=== PATIENT | female | born 1945 | race Caucasian/White ===

== ENCOUNTER 2017-01-25 06:12 | Day surgery (SDC) | payer MEDICARE, OTHER ==
--- NOTE | ~2017-01-25 | OP ---
Record Of Operation [facility] [address] [place]. [address] NAME: JUS BENTLEY : 49 STATUS : REG [facility]#: [id number] AGE: 71 ADM/REG DATE : 01/25/17 MR#: [id number] REPORT SERV DATE: 01/25/17 DICTATED BY: PJ ANGELO JR. DATE: 01/25/17 REPORT STATUS : Draft TRANSCRIBED BY: JOSÉ MIGUEL DATE: 01/25/17 DATE OF PROCEDURE: 01/25/2017 PREOPERATIVE DIAGNOSES: Right upper lobe spindle cell carcinoma, mediastinal lymphadenopathy, recent hip fracture with total hip replacement, osteoarthritis, anxiety disorder, and hypertension. POSTOPERATIVE DIAGNOSIS: Right upper lobe spindle cell carcinoma, mediastinal lymphadenopathy, recent hip fracture with total hip replacement, osteoarthritis, anxiety disorder, and hypertension. NAME OF OPERATION: Diagnostic and therapeutic bronchoscopy, endobronchial ultrasound with multiple fine-needle aspirations, harrison stations 4R, 10R, and 7. RESIDENT SURGEON: Chris Jc MD ANESTHESIA: General endotracheal. FINDINGS: The patient was noted to have an enlarged right paratracheal lymph nodes, but had a benign architecture. Multiple touch preps of the right paratracheal, right mainstem bronchial, and subcarinal lymph nodes were all negative. Adequate lymphocytes were obtained. There were no endobronchial lesions. Anatomy was normal. DETAILS OF OPERATION: After adequate general anesthesia, the patient was intubated. A bronchoscopy was performed noting no endobronchial lesions. Mucous secretions were evacuated. Endobronchial ultrasound was then performed demonstrating the large lymph nodes in the right paratracheal space. Multiple fine-needle aspirations were performed in these lymph nodes, as well as the nodes in the right mainstem bronchial region, and subcarinal region. Adequate lymphocytes were obtained from all three areas. There was no evidence of malignancy. Additional material was sent for cell block. Final pathology is pending. Adequate hemostasis was then obtained. The procedure was terminated at this point. The patient tolerated the procedure well and taken back to recovery room in stable condition. DEBORA/JOSÉ MIGUEL Pj Angelo Jr., M.D. / [id number] CC: Al Valentine Jr., M.D.
[~2017-01-25 06:12] MED LIST: ACIPHEX PO; ATEN100 PO; FIORICET 50-301 EACH PO; LIPITOR10 PO; NEUR600 PO; PRIN10 PO; XANAX1 MG PO
[2017-01-25 06:37] LABS: HEMATOCRIT 40.4 % (36.0-48.0)
[2017-01-25 06:53] LABS: BUN (BLOOD UREA NITROGEN) 9 MG/DL (6-23); CALCIUM, SERUM 9.6 MG/DL (8.5-10.4); CHLORIDE, SERUM 101 MMOL/L (96-112); CO2 (CARBON DIOXIDE) 29 MMOL/L (24-34); CREATININE 0.63 MG/DL (0.55-1.02); GFR AFRICAN AMERICAN 106 ML/MIN (>=60); GFR NON AFRICAN AMERICAN 92 ML/MIN (>=60); GLUCOSE, SERUM 109 MG/DL (60-99); POTASSIUM, SERUM 4.7 MMOL/L (3.5-5.3); SODIUM, SERUM 138 MMOL/L (135-148)
== END 2017-01-25 23:59 | disposition home or self-care (01) ==
LOC: DMU 06:12
PROVIDERS: Anesthesiology; Thoracic Surgery (Cardiothoracic Vascular Surgery)
PROC: 07B74ZX Excision of Thorax Lymphatic, Percutaneous Endoscopic Approach, Diagnostic (ICD-10-PCS; principal; 2017-01-25 08:00)
DX: C34.11 Malignant neoplasm of upper lobe, right bronchus or lung (principal); M19.90 Unspecified osteoarthritis, unspecified site; F41.9 Anxiety disorder, unspecified; I10 Essential (primary) hypertension; I34.1 Nonrheumatic mitral (valve) prolapse; G47.33 Obstructive sleep apnea (adult) (pediatric); E78.00 Pure hypercholesterolemia, unspecified; K21.9 Gastro-esophageal reflux disease without esophagitis; Z88.0 Allergy status to penicillin; Z88.5 Allergy status to narcotic agent; Z91.09 Other allergy status, other than to drugs and biological substances; Z90.89 Acquired absence of other organs; Z96.641 Presence of right artificial hip joint; Z79.899 Other long term (current) drug therapy; Z98.890 Other specified postprocedural states
CPT/HCPCS: 80048; 85014; 85018; 88172; 88173; 88177; 88305; 93005; A9270-GY; C1725; J2175; J2250; J2405; J3010

== ENCOUNTER 2017-01-31 06:40 | Inpatient (IN) | payer MEDICARE, OTHER ==
--- NOTE | ~2017-01-31 | OP ---
Record Of Operation [facility] [address] [place]. [address] NAME: JUS BENTLEY : 49 STATUS : ADM IN PAT#: [id number] AGE: 71 ADM/REG DATE : 01/31/17 MR#: [id number] REPORT SERV DATE: 01/31/17 DICTATED BY: GLENN ANGELO JR. 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 Final pathology pending. NAME OF OPERATION: Bronchoscopy, right thoracoscopy with right upper lobectomy, complete mediastinal node dissection, harrison stations 4R, 7, 9, 10R, 11R, and intercostal nerve block. RESIDENT SURGEON: Chris Jc. [employer]: Charli Uriarte. ANESTHESIA: General endotracheal. FINDINGS: The patient was noted to have a large tumor arising out of the right upper lobe. Appeared to be contained within the right upper lobe. There were some adhesions extending to the chest wall but it was not invading the chest wall. Frozen section confirmed there was no chest wall or pleural involvement. It is difficult to tell on frozen section the exact etiology of this tumor or the cell type of the tumor. All margins were negative. Final pathology is pending. There were a lot of enlarged lymph nodes, particularly in the right paratracheal area but we could not see any obvious tumor involvement of these lymph nodes. DETAILS OF OPERATION: After adequate general anesthesia, the patient was intubated. Bronchoscopy was performed noting no endobronchial lesions. Mucous secretions were evacuated. A left-sided double-lumen endotracheal tube was then placed. The patient was then positioned in the left lateral decubitus position. The right chest was prepped and draped in a routine sterile fashion. A small incision was made overlying the lower intercostal space. A separate anterior trocar incision was also made. Through these two incision sites, the above findings were noted. Tumor was easily identified and it was felt not to be involving the chest wall. Some inflammatory adhesions were taken down between the tumor in the chest wall. Decision was made to go ahead with the right upper lobectomy. The inferior pulmonary ligament was then taken down. The hilar structures were dissected out. The right superior pulmonary vein was identified and transected preserving the middle lobe branch. The pulmonary arterial branch was divided with a vascular stapler. The bronchus was divided with a BINH stapler. The fissure was divided with multiple firings of BINH stapler with tissue reinforcements. The specimen was placed within the specimen bag and withdrawn through the anterior trocar site. Nodes from the right paratracheal, subcarinal, inferior pulmonary ligament, right mainstem bronchial and hilar regions were all removed. Adequate hemostasis was obtained. An intercostal nerve block was performed. The chest was thoroughly irrigated with sterile water. A 20-Bur[place] chest tube was placed. The lung was Record Of Operation [address] [address] NAME: JUS BENTLEY : 49 STATUS : ADM IN [facility]#: [id number] AGE: 71 ADM/REG DATE : 01/31/17 MR#: [id number] REPORT SERV DATE: 01/31/17 DICTATED BY: GLENN ANGELO JR. DATE: 01/31/17 REPORT STATUS : Draft TRANSCRIBED BY: JOSÉ MIGUEL DATE: 01/31/17 reinflated. Trocar site was closed with running Vicryl sutures. The skin was closed with running monofilament suture. A Dermabond dressing was applied and the procedure was terminated at this point. The patient tolerated the procedure well and taken back to the recovery room in stable condition. DEBORA/JOSÉ MIGUEL Glenn Angelo Jr., M.D. / [id number] CC: Al Valentine Jr., M.D.
[2017-01-31 07:21] LABS: ASCORBIC ACID (UR NOT ORDER) NEG (NEG); BILIRUBIN, URINE NEGATIVE (NEG); KETONE, URINE NEGATIVE (NEG); LEUKOCYTE ESTERASE(NOT OR MOD (NEG); WBC (NOT ORDERED) (RFLEX) 30 (0-5)
[2017-01-31 07:51] LABS: INTERNATIONAL NORMAL RATI 1.2 UNITS (-)
[2017-01-31 07:52] LABS: BASOPHILS 0.2 %; BASOPHILS ABSOLUTE 0.02 10/3/uL (0.0-0.16); EOSINOPHILS 1.3 %; EOSINOPHILS ABSOLUTE 0.17 10/3/uL (0.0-0.53); HEMATOCRIT 39.7 % (36.0-48.0); HEMOGLOBIN 12.7 g/dL (12.0-16.0); IMMATURE GRANULOCYTES 0.5 %; IMMATURE GRANULOCYTES ABSOLUTE 0.07 10/3/uL (0.0-0.11); LYMPHOCYTES 15.9 %; LYMPHOCYTES ABSOLUTE 2.03 10/3/uL (0.67-4.30); MEAN CORPUSCULAR HEMOGLOB 26.6 pg (26.0-34.0); MEAN CORPUSCULAR VOLUME 83.1 fL (80-100); MEAN PLATELET VOLUME 9.7 fL (9.2-13.0); MONOCYTES 6.4 %; MONOCYTES ABSOLUTE 0.82 10/3/uL (0.21-1.20); NEUTROPHILS 75.7 %; NEUTROPHILS ABSOLUTE 9.65 10/3/uL (2.02-8.40); PLATELET COUNT 331 10/3/uL (150-400); RBC DISTRIBUTION WIDTH 19.6 % (12.0-16.0); RED CELL COUNT 4.78 10/6/uL (4.0-5.6); WHITE BLOOD CELLS 12.8 10/3/uL (4.5-10.5)
[2017-01-31 07:54] LABS: MANUAL DIFF NO %
[2017-01-31 07:58] LABS: BUN (BLOOD UREA NITROGEN) 10 MG/DL (6-23); CALCIUM, SERUM 9.9 MG/DL (8.5-10.4); CHLORIDE, SERUM 104 MMOL/L (96-112); CREATININE 0.65 MG/DL (0.55-1.02); GFR AFRICAN AMERICAN 105 ML/MIN (>=60); GFR NON AFRICAN AMERICAN 91 ML/MIN (>=60); GLUCOSE, SERUM 116 MG/DL (60-99); SODIUM, SERUM 137 MMOL/L (135-148)
[2017-01-31 07:59] LABS: CO2 (CARBON DIOXIDE) 23 MMOL/L (24-34)
[2017-02-01 05:14] LABS: BASOPHILS 0.2 %; BASOPHILS ABSOLUTE 0.02 10/3/uL (0.0-0.16); EOSINOPHILS 0.3 %; EOSINOPHILS ABSOLUTE 0.03 10/3/uL (0.0-0.53); HEMATOCRIT 37.2 % (36.0-48.0); HEMOGLOBIN 11.9 g/dL (12.0-16.0); IMMATURE GRANULOCYTES 0.5 %; IMMATURE GRANULOCYTES ABSOLUTE 0.05 10/3/uL (0.0-0.11); LYMPHOCYTES 18.8 %; LYMPHOCYTES ABSOLUTE 1.87 10/3/uL (0.67-4.30); MEAN CORPUSCULAR VOLUME 84.4 fL (80-100); MEAN PLATELET VOLUME 9.4 fL (9.2-13.0); MONOCYTES 7.9 %; MONOCYTES ABSOLUTE 0.78 10/3/uL (0.21-1.20); NEUTROPHILS 72.3 %; NEUTROPHILS ABSOLUTE 7.18 10/3/uL (2.02-8.40); PLATELET COUNT 297 10/3/uL (150-400); RBC DISTRIBUTION WIDTH 19.2 % (12.0-16.0); RED CELL COUNT 4.41 10/6/uL (4.0-5.6); WHITE BLOOD CELLS 9.9 10/3/uL (4.5-10.5)
[2017-02-01 05:15] LABS: MANUAL DIFF NO %
[2017-02-01 05:24] LABS: BUN (BLOOD UREA NITROGEN) 7 MG/DL (6-23); CHLORIDE, SERUM 103 MMOL/L (96-112); CO2 (CARBON DIOXIDE) 26 MMOL/L (24-34); CREATININE 0.52 MG/DL (0.55-1.02); GFR AFRICAN AMERICAN 113 ML/MIN (>=60); GFR NON AFRICAN AMERICAN 97 ML/MIN (>=60); GLUCOSE, SERUM 106 MG/DL (60-99); POTASSIUM, SERUM 3.8 MMOL/L (3.5-5.3); SODIUM, SERUM 135 MMOL/L (135-148)
[2017-02-01 05:26] LABS: CALCIUM, SERUM 8.8 MG/DL (8.5-10.4)
[2017-02-01] MEDS ORDERED: PCET PO (13:29)
[2017-02-01] MEDS ORDERED: ZOFRAN4 PO (13:29)
== END 2017-02-01 16:39 | disposition home or self-care (01) | DRG 165 ==
LOC: SDC/OF 06:40 → PACU 12:39 → 5NO 14:23
PROVIDERS: Thoracic Surgery (Cardiothoracic Vascular Surgery)
PROC: 3E0T3BZ Introduction of Anesthetic Agent into Peripheral Nerves and Plexi, Percutaneous Approach (ICD-10-PCS; 2017-01-31)
PROC: 0BJ08ZZ Inspection of Tracheobronchial Tree, Via Natural or Artificial Opening Endoscopic (ICD-10-PCS; 2017-01-31)
PROC: 0BTC4ZZ Resection of Right Upper Lung Lobe, Percutaneous Endoscopic Approach (ICD-10-PCS; principal; 2017-01-31 08:15)
PROC: 07B74ZX Excision of Thorax Lymphatic, Percutaneous Endoscopic Approach, Diagnostic (ICD-10-PCS; 2017-01-31 08:15)
DX: C34.11 Malignant neoplasm of upper lobe, right bronchus or lung (principal); I10 Essential (primary) hypertension; F41.9 Anxiety disorder, unspecified; E78.5 Hyperlipidemia, unspecified; E66.9 Obesity, unspecified; Z68.35 Body mass index [BMI] 35.0-35.9, adult; I34.1 Nonrheumatic mitral (valve) prolapse; K21.9 Gastro-esophageal reflux disease without esophagitis; Z87.891 Personal history of nicotine dependence; E78.2 Mixed hyperlipidemia; M19.90 Unspecified osteoarthritis, unspecified site
CPT/HCPCS: 36415; 71020; 80048; 81001; 82962; 83036; 85025; 85610; 86850; 86900; 86901; 87086; 87641; 88305; 88307; 88309; 88313; 88331; 88332; 88341; 88342; 94640; A9270-GY; J0360; J1580; J1885; J2250; J2405; J2710; J2795; J3010; J3370